=== PATIENT | male | born 1940 | race Caucasian/White ===

== ENCOUNTER → 2017-09-09 | Outpatient (CLI) | payer OTHER | END | disposition home or self-care (01) | LOC: GMAM 14:55 | PROVIDERS: ATTEND Family Medicine | DX: Z12.5 Encounter for screening for malignant neoplasm of prostate (principal); R06.02 Shortness of breath | CPT/HCPCS: 83880; G0103 ==

== ENCOUNTER → 2017-10-14 | Outpatient (CLI) | payer MEDICARE | END | disposition home or self-care (01) | LOC: GMAM 14:37 | PROVIDERS: ATTEND Family Medicine | DX: R06.02 Shortness of breath (principal); R06.2 Wheezing; R94.5 Abnormal results of liver function studies ==

== ENCOUNTER → 2017-10-26 | Outpatient (CLI) | payer MEDICARE ==
--- NOTE | 2017-10-26 16:32 | US ---
EXAM DESCRIPTION: Liver CLINICAL HISTORY: 77 years Male, ELEVATED LFT'S COMPARISON: None. TECHNIQUE: Standard transabdominal scan: Two-dimensional and Doppler modes. FINDINGS: Gallbladder with no intraluminal stones or sludge. No wall thickening or fluid. Normal size. Nontender. Normal caliber of the common biliary duct. Increased echogenicity of the liver. Smooth capsule. Craniocaudal axis of the right lobe is 16.6 cm. No intrahepatic biliary dilatation. No ascites. Normal size echogenicity of the pancreas. Pancreatic duct not dilated. Right kidney measures 9.7 cm long axis. Normal echogenicity and cortical thickness. No hydronephrosis or perinephric fluid. No stones. IMPRESSION: Steatosis of the liver with borderline enlargement, no duct dilation or ascites. Normal caliber of the common bile duct. Normal ultrasound of the gallbladder and pancreas. Normal ultrasound of the right kidney. Electronically signed by: Glen Reynolds MD 10/26/2017 4:31 PM [employer]
== END | disposition home or self-care (01) ==
LOC: US 08:04
PROVIDERS: ATTEND Family Medicine
DX: R06.02 Shortness of breath (principal); R94.5 Abnormal results of liver function studies

== ENCOUNTER 2019-03-27 04:48 | Emergency (ER) | payer MEDICARE ==
[2019-03-27] MEDS ORDERED: SODIUM CHLORIDE 0.9% (FLUSH) 10 ML SYG IV PRN (04:57)
[2019-03-27] MEDS ORDERED: SODIUM BICARBONATE VIAL 50 MEQ/50 ML VIAL IV ONE (05:14)
[2019-03-27] MEDS ORDERED: SODIUM CHLORIDE 0.9% 1000ML 1,000 ML ONE (05:24)
--- NOTE | 2019-03-27 05:28 | RAD ---
EXAM DESCRIPTION: AP view of the chest CLINICAL HISTORY:78 years Male, Cardiac Arrest Comparison: None FINDINGS: The lungs are hyperinflated but clear. Endotracheal tube terminates 4.3 cm above the gregoria. NG tube terminates below the diaphragm in the region of the stomach. There are no pleural abnormalities. The cardiac silhouette is normal in size. Mild diffuse prominence of the pulmonary interstitium probably related to chronic lung disease. IMPRESSION: Support tubes in good position. Electronically signed by: Wood Corona DO 03/27/2019 5:25 AM CDT
--- NOTE | 2019-03-27 05:37 | ED.PDOC ---
History of Present Illness - General Chief Complaint: Cardiac Respiratory Arrest Stated Complaint: post cardiac arrest Time Seen by Provider: 03/27/19 05:13 Source: EMS Exam Limitations: clinical condition - intubated - History of Present Illness Initial Comments: Wood Worley 78 y/o male brought by EMS after he had witnessed cardiac arrest at home.According to EMS patient slipped off the toilet and was found sitting on the floor back against the wall and was advised to come to hospital for evaluation but declined just wanting help to get up from the floor since he felt weak then as ems assisted him to his bed suddenly got unresponsive ,not breathing and connected to monitor showing bradycardia then chest compression was started ,intubated, iv line started then was given epinephrine and pulses was felt then as EMS was about to load him in the ambulance became hypotensive again and bradycardic then 2nd dose of epinephrine given .On his arrival here at ER BP-160/90;HR-164 Timing/Duration: 1-3 hours Severity: severe Allergies/Adverse Reactions: Allergies Desflurane Allergy (Unverified 02/22/14 07:27) Sevoflurane Allergy (Unverified 02/22/14 07:27) Succinylcholine Allergy (Unverified 02/22/14 07:27) MALIGNANT HYPERTHERMIA Allergy (Uncoded 02/22/14 07:30) FAMILY HISTORY Home Medications: Ambulatory Orders Ciprofloxacin [Cipro] 500 mg PO BID #20 tab 10/03/14 Phenazopyridine HCl [Pyridium] 200 mg PO TID #6 tab 10/03/14 Tamsulosin [Flomax] 0.4 mg PO QD #20 cap 10/03/14 Review of Systems - Review of Systems Unable to Obtain Due To: condition, intubated Past Medical History (General) - Patient Medical History Hx Congestive Heart Failure: No Hx Diabetes: No - Vaccination History Hx Influenza Vaccination: Yes - Social History Hx Tobacco Use: Yes Family Medical History - Family History Father Family History: Unknown Living Status: Physical Exam - Physical Exam General Appearance: Other - unresponsive,intubated Eyes, Ears, Nose, Throat Exam: other - both pupils constricted,orotracheal tube in place Neck: supple Respiratory: other - intubated,mechnically ventilate Cardiovascular/Chest: no murmur, tachycardia Peripheral Pulses: radial,right: 2+, radial,left: 2+ Gastrointestinal/Abdominal: soft, no organomegaly Extremity: no pedal edema Neurologic: other - unresponsive Skin Exam: pallor Progress - Progress Progress: 03/27/19 05:51 03/27/19 04:57 IV Care:Saline Lock per Protoc QSHIFT Telemetry .ONCE Sodium Chloride 0.9% (Flush) [Saline Flush Syringe] 10 ml IV PRN PRN EKG Stat Pulse Ox Stat 03/27/19 04:58 D-DIMER,QUANTITATIVE Stat EKG Assessment ONCE Pulse Oximetry Assessment DAILY 03/27/19 04:59 ABG [Arterial Blood Gas] Stat 03/27/19 05:02 jung [Catheter:Jung] QSHIFT 03/27/19 05:03 NG [Tube(s):Nasogastric,Insertion] PRN 03/27/19 05:27 Arterial Blood Gas Stat 03/27/19 05:43 SPUTUM CULTURE Stat Laboratory Results - last 24 hr 03/27/19 03/27/19 03/27/19 05:14 05:15 05:21 WBC 14.8 H RBC 4.11 L Hgb 15.1 Hct 46.1 MCV 112.0 H MCH 36.7 H MCHC 32.8 L RDW 13.9 Plt Count 334 MPV 7.9 Absolute Neuts (auto) 11.50 H Absolute Lymphs (auto) 2.00 Absolute Monos (auto) 1.10 H Absolute Eos (auto) 0.10 Absolute Basos (auto) 0.10 Neutrophils % 77.6 Neutrophils % (Manual) 29.0 L Lymphocytes % 13.6 L Lymphocytes % (Manual) 25.0 Monocytes % 7.5 Monocytes % (Manual) 6.0 Eosinophils % 0.7 L Basophils % 0.6 Band Neutrophils 34.0 H* Eosinophils 2.0 Metamyelocytes 4.0 H Anisocytosis 1+ Macrocytosis 2+ PT 12.1 H INR 1.21 H PTT (SP) 25.3 Sodium 133 L Potassium 3.8 Chloride 95 L Carbon Dioxide 19 L Anion Gap 22.8 H BUN 19 H Creatinine 1.18 BUN/Creatinine Ratio 16.1 Random Glucose 216 H Serum Osmolality 275.2 Calcium 8.5 Magnesium 1.9 Total Bilirubin 0.9 Direct Bilirubin 0.3 H Indirect Bilirubin 0.6 AST 76 H ALT 48 Alkaline Phosphatase 59 Creatine Kinase 124 CK-MB (CK-2) 8.5 H* CK-MB (CK-2) % 6.85 H Troponin I 0.06 H B-Natriuretic Peptide 496.0 H* Serum Total Protein 6.9 Albumin 3.1 L Urine Color Yellow Urine Appearance Clear Urine pH 6.0 Ur Specific [facility] 1.025 Urine Protein 100 H Urine Glucose (UA) Negative Urine Ketones 40 H Urine Blood Trace-intact H Urine Nitrite Negative Urine Bilirubin Small H Urine Urobilinogen 1.0 Ur Leukocyte Esterase Negative Urine RBC 3-5 H Urine WBC 1-3 Ur Epithelial Cells 1-3 Urine Bacteria Rare Urine Mucus Small - Results/Orders Results/Orders: Vital Signs - 8 hr 03/27/19 04:48 Temperature 95.5 F L Pulse Rate 154 H Pulse Rate [ 154 H TELE] Respiratory 18 Rate Blood Pressure 171/69 [Right Arm] O2 Sat by Pulse 84 L Oximetry - EKG/XRAY/CT EKG: Sinus, Tachy, no ST T wave changes Comments: HR-143 Departure - Departure Clinical Impression: Cardiac arrest, Signs of return of spontaneous circulation Time of Disposition: 05:53 Disposition: Transfer to Hospital Departure Forms: ED Discharge - Pt. Copy, Patient Portal Self Enrollment Referrals: Jose Antonio Valenzuela MD [Primary Care Provider] - 1-2 Weeks Home Medications: Ambulatory Orders Ciprofloxacin [Cipro] 500 mg PO BID #20 tab 10/03/14 Phenazopyridine HCl [Pyridium] 200 mg PO TID #6 tab 10/03/14 Tamsulosin [Flomax] 0.4 mg PO QD #20 cap 10/03/14 Transfer to Outside Facility - Transfer Information Accepting Provider:: Dr. 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
[2019-03-27] MEDS ORDERED: MIDAZOLAM INJ 5 MG/5 ML VIAL ONE (06:32)
[2019-03-27] MEDS ORDERED: MIDAZOLAM INJ 5 MG/5 ML VIAL IV ONE (06:33)
[2019-03-27] MEDS ORDERED: IPRATROPIUM/ALBUTEROL 3 ML VIAL NEB ONE ×3 (06:38→06:46)
[2019-03-27 07:28] VITALS: BP 117/103; TEMP 96.5
[2019-03-27 07:30] VITALS: O2SAT 86
== END 2019-03-27 07:20 | disposition short-term general hospital (02) ==
LOC: ER 04:48
DX: I46.9 Cardiac arrest, cause unspecified (principal); Z87.891 Personal history of nicotine dependence; Z79.899 Other long term (current) drug therapy; Z88.8 Allergy status to other drugs, medicaments and biological substances
CPT/HCPCS: 36415; 36600; 71045; 80048; 80076; 81001; 82550; 82553; 82803; 82805; 83880; 84484; 85025; 85379; 85610; 85730; 87070; 93005; 94640; J2250; J7030; J7620